=== PATIENT | female | born 1990 | race Caucasian/White ===

== ENCOUNTER → 2018-08-06 | Outpatient (CLI) | payer BC ==
--- NOTE | 2018-08-06 15:43 | US ---
EXAMINATION TYPE: Ultrasound OB <= 14 week fetus DATE OF EXAM: 08/06/2013 COMPARISON: NONE CLINICAL HISTORY: 27-year-old female O76 Abnormality in heart rate and rhythm com. Abnormal or absent heart tones EXAM PERFORMED: Transabdominal (TA) FINDINGS: EXAM MEASUREMENTS: GESTATIONAL AGE / DATING Physician Established: Not yet established Dates by LMP: (12 weeks/3 days) EDC: 02/15/19 Dates by First Scan: No previous this is first scan Dates by Current Scan for: (11 weeks/1 days) EDC: 02/24/19 MATERNAL ANATOMY Uterus: 10.1 x 6.8 x 9.6cm Right Ovary: 2.3 x 2.0 x 1.9cm Left Ovary: 2.9 x 1.3 x 1.5cm Post CDS / Adnexa: appears wnl Presence of free fluid: no Presence of corpus luteal cyst: complex area right ovary = 1.7 x 1.2cm GESTATION / SURVEY CRL: 4.2cm (11 weeks/1 days) Yolk Sac (normal less than 6mm): 0.5cm Heart Rate: 155 bpm Rhythm: Normal IUP: Viable IUP Date of LMP: 05/11/18 Beta HcG (if available): not available [facility] notes: Single viable IUP 11wks/1day with CHANELLE of 02/24/19. Difficult to visualize right ov janice due to large amount of overlying bowel content, probable corpus luteum right ovary. IMPRESSION: 1. Single live intrauterine with estimated gestational age of 12 weeks 3 days by LMP. Curre nt ultrasound biometry is smaller by 1 week and 2 days (with a measured GA of 11 weeks 1 day by crown -rump length). Short interval follow-up can be considered. 2. Complete survey recommended at 18-20 weeks.
== END | disposition home or self-care (01) ==
LOC: RADUSWWP 14:44
PROVIDERS: ATTEND Obstetrics & Gynecology
DX: O76 Abnormality in fetal heart rate and rhythm complicating labor and delivery (principal); Z3A.12 12 weeks gestation of pregnancy
CPT/HCPCS: 76801

== ENCOUNTER 2018-12-30 21:05 | Outpatient (CLI) | payer BC ==
[2018-12-30 22:40] VITALS: BP 135/85; PULSE 100; RESP 16; TEMP 98.4
--- NOTE | 2019-01-24 11:39 | P.MSEPDOC ---
Presenting Problems - Arrival Data Date of Arrival on Unit: 12/30/18 Time of Arrival on Unit: 21:04 Mode of Transport: Wheelchair - Complaint OB-Reason for Admission/Chief Complaint: Rule Out PROM Medical History - Information : 1 Para: 0 Term: 0 : 0 Abortions: Spontaneous or Elective: 0 Number of Living Children: 0 - Gestational Age Gestational Age by CHANELLE (wks/days): 31 Weeks and 2 Days Review of Systems - Review of Systems Constitutional: No problems Breast: No problems ENT: No problems Cardiovascular: No problems Respiratory: No problems Gastrointestinal: Constipation, Diarrhea Genitourinary: No problems Musculoskeletal: No problems Neurological: No problems Skin: No problems Vital Signs - Temperature Temperature: 98.4 F Temperature Source: Oral - Pulse Right Pulse Oximetery Pulse Rate: 100 Pulse Assessment Method: Pulse Oximetry - Respirations Respiratory Rate: 16 Oxygen Delivery Method: Room Air O2 Sat by Pulse Oximetry: 98 - Blood Pressure Right Arm Supine Blood Pressure: 135/85 Blood Pressure Mean: 101 Blood Pressure Source: Automatic Cuff Medical Screen Scoring (Pre) - Cervical Exam Dilation: 0 cm = 0 Membranes: Intact - Uterine Contractions Frequency: > 5 minutes apart = 1 Duration: > 40 seconds = 2 - Maternal Vital Signs Maternal Temperature: N/A Maternal Blood Pressure: N/A Signs of Preeclampsia: N/A Maternal Respirations: N/A - Pain Assessment Pain Scale Used: Numeric (1 - 10) Pain Intensity: 0 Pain Behavior: None Exhibited - Maternal Trauma Maternal Trauma: N/A - Assessment Baseline FHR: 145 Heart Rate - NICHD Category: Category I (Normal) = 0 NST: Reactive - Total Score Total Score (Pre): 3 - Level of Risk Level of Risk: Low (0-5) Physician Notification (Pre) - Physician Notified Physician Notified Date: 12/30/18 Physician Notified Time: 22:00 Physician/Practitioner Notifed:: Dr Castillo Spoke With: Dr Castillo New Order Received: Yes - Notification Comment Comment: Amnisure negative, may discharge to home with FBP discharge instructions, keep next appointment with Dr Tapia Disposition - Disposition OB Disposition: Discharge to home Discharge Date: 12/30/18 Discharge Time: 22:30 I agree with the RN Medical Screening Exam: Yes Risk & Benefit of care provided described in d/c instruction: Yes Diagnosis: RELATED CONDITIONS, UNSPECIFIED, THIRD TRIMESTER
== END 2018-12-30 22:30 | disposition home or self-care (01) ==
LOC: FBPOP 21:05
PROVIDERS: ATTEND Obstetrics & Gynecology
DX: O26.93 Pregnancy related conditions, unspecified, third trimester (principal); Z3A.31 31 weeks gestation of pregnancy
CPT/HCPCS: 59025; 84112; 99213

== ENCOUNTER 2019-01-27 06:02 | Outpatient (CLI) | payer BC ==
[2019-01-27] MEDS ORDERED: LACTATED RINGERS 1,000 ML IV SCH ×2 (07:00)
[2019-01-27 07:04] VITALS: BP 136/89; PULSE 85; RESP 16; TEMP 97.2
--- NOTE | 2019-01-27 08:30 | US ---
EXAMINATION TYPE: US OB BPP wo non-stress DATE OF EXAM: 01/27/2019 COMPARISON: First trimester ultrasound August 06, 2018 CLINICAL HISTORY: decreased movement noted yesterday, but patient stated she felt movemen t this morning EXAM PERFORMED: Transabdominal (TA) BPP PARAMETERS: PRESENTATION: Vertex LIE: Longitudinal?? HEART RATE: 136 bpm RHYTHM: Normal LORE: 14.0 DIAPHRAGM IMAGED: yes BPP SCORIN. Breathin (1 episode of breathing of 30 second duration in 30 minutes of scanning time) 2. Movement: 2 (at least 3 discrete body movements in 30 minutes) 3. Tone: 2 (1 episode of active flexion/extension of limb) 4. LORE: 2 (LORE index > 5cm) TOTAL SCORE: 8 / 8 Biophysical profile scored normal during real-time scanning.
--- NOTE | 2019-01-27 08:45 | US ---
EXAMINATION TYPE: US OB >= 14 wk fetus DATE OF EXAM: 01/27/2019 COMPARISON: First trimester ultrasound August 06, 2018 CLINICAL HISTORY: LORE, EFW, decreased movement yesterdayper patient; TECHNIQUE: Transabdominal (TA) GESTATIONAL AGE / DATING Physician Established: (35 weeks/2 days) EDC: 03/01/2019 Dates by First Scan: (36 weeks/0 days) EDC: 02/24/2019 Dates by Current Scan: (35 weeks/2 days) EDC: 03/01/2019 Beta HCG (if available): NA SURVEY IUP: Single PLACENTA: Anterior PREVIA: No Previa LORE: 16.4 cm Normal CERVICAL LENGTH (transabdominal: norm > 3.0cm): 4.6 cm BIOMETRY PRESENTATION: Vertex LIE: Longitudinal BPD: 9.2 cm 37 weeks / 3 days HC: 31.8 cm 35 weeks / 6 days AC: 29.0 cm 33 weeks / 0 days FL: 6.8 cm 35 weeks / 0 days ESTIMATED WEIGHT IN GRAMS: 2399.0 grams ESTIMATED WEIGHT IN LBS/OZ: 5 lbs. 5 oz. WEIGHT PERCENTAGE BASED ON ESTABLISHED DATES: 22.2% HC/AC: 1.1 Normal FL/AC: 23.5 Normal HEART RATE: 158 bpm RHYTHM: Normal Tech findings reported at exam's end to Adelia Vital RN for this patient. JJ Single live intrauterine gestation is redemonstrated. Normal cephalad presentation to fetus is seen. No ultrasound evidence for placenta previa. Amniotic fluid index is calculated at upper limits of nor mal. biometry measurements are concordant felt within normal limits. IMPRESSION: As above, no ultrasound evidence for complication.
[2019-01-27 09:50] LABS: Basophils % (A) 0 %; Eosinophils # (A) 0.1 k/uL (0-0.7); Eosinophils % (A) 1 %; HCT 34.8 % (34.0-46.0); HGB 11.6 gm/dL (11.4-16.0); Lymphocytes # (A) 2.1 k/uL (1.0-4.8); Lymphocytes % (A) 21 %; MCH 30.7 pg (25.0-35.0); MCHC 33.4 g/dL (31.0-37.0); Mean Platelet Volume 10.8; Monocytes # (A) 0.6 k/uL (0-1.0); Monocytes % (A) 6 %; Neutrophils # (A) 7.2 k/uL (1.3-7.7); Neutrophils % (A) 71 %; Platelet Count 182 k/uL (150-450); RBC 3.78 m/uL (3.80-5.40); RDW 13.4 % (11.5-15.5); WBC 10.2 k/uL (3.8-10.6)
[2019-01-27 10:24] LABS: ALT 30 U/L (9-52); AST 21 U/L (14-36); Blood Urea Nitrogen 7 mg/dL (7-17); LDH 400 U/L (313-618)
[2019-01-27 10:38] LABS: Appearance,Urine Clear (Clear); Bacteria,Urine Occasional /hpf; Bilirubin,Urine Negative (Negative); Blood,Urine Negative (Negative); Color,Urine Light Yellow; Glucose,Urine (UA) Negative (Negative); Ketones,Urine Negative (Negative); Leukocyte Esterase,Urine Trace (Negative); Nitrite,Urine Negative (Negative); PH, Urine 7.5 (5.0-8.0); Protein,Urine Negative (Negative); Specific Gravity,Urine 1.008 (1.001-1.035); Squamous Epithelial Cell,Urine 1 /hpf (0-4); Urobilinogen,Urine <2.0 mg/dL (<2.0); WBC,Urine 1 /hpf (0-5)
--- NOTE | 2019-01-27 10:48 | P.PN ---
Subjective Progress Note Date: 01/27/19 Principal diagnosis: IUP @ 35 2/7 weeks, decreased FM This is a 28 yo at 35 2/7 weeks that presents with c/o decreased FM. she initially has a non reactive NST, which was followed up with us evaluation. BPP 8/9 with nml LORE 15. FHTs are noted to be reassuring with moderate variability occasional self acceleration is noted. No contractions are noted on the monitor. Patient subsequently had some elevated blood pressures 140s/ 90s. She has a history of migraines and now states she has a headache. Blood pressures have improved over monitoring 130s over 70s, preeclampsia labs were noted to be negative. Objective - Vital Signs Vital signs: Vital Signs Temp 97.2 F L 01/27/19 06:46 Pulse 85 01/27/19 06:46 Resp 16 01/27/19 06:46 BP 136/89 01/27/19 06:46 Pulse Ox 98 01/27/19 06:46 Intake & Output 01/26/19 01/27/19 01/27/19 18:59 06:59 18:59 Intake Total 1000 Balance 1000 Weight 76.657 kg Intake: Intake, IV Titration 1000 Amount Lactated Ringers 1,000 ml 1000 @ 4000 mls/hr IV .Q15M SAE Rx#:[id number] Other: # Voids 1 - Constitutional General appearance: Present: average body habitus, cooperative, no acute distress - Respiratory Respiratory: bilateral: CTA - Cardiovascular Rhythm: regular - Gastrointestinal Gastrointestinal Comment(s): Gravid and appropriate for gestational age. - Genitourinary Genitourinary Comment(s): cl/th/ posterior per RN - Psychiatric Psychiatric: Present: A&O x's 3, appropriate affect - Labs CBC & Chem 7: 01/27/19 07:00 01/27/19 10:03 Labs: Abnormal Lab Results - Last 24 Hours (Table) 01/27/19 01/27/19 Range/Units 07:00 10:18 RBC 3.78 L (3.80-5.40) m/uL Ur Leukocyte Esterase Trace H (Negative) Urine Bacteria Occasional H (None) /hpf Assessment and Plan (1) 35 weeks gestation of Current Visit: Yes Status: Acute Code(s): Z3A.35 - 35 WEEKS GESTATION OF SNOMED Code(s): 35489930 (2) Decreased movement Current Visit: Yes Status: Acute Code(s): O36.8190 - DECREASED MOVEMENTS, UNSP TRIMESTER, UNSP SNOMED Code(s): 009897292 Plan: Given the extensive testing during her triage visit, including ultrasound evaluation of weight, amniotic fluid index, biophysical profile, preeclampsia labs given elevation of blood pressure during her triage stay all negative and reassuring. We will allow her to eat, and continue to monitor heart tones during her meal and send patient home with follow-up with Dr. Tapia.
--- NOTE | 2019-01-28 11:21 | P.MSEPDOC ---
Presenting Problems - Arrival Data Date of Arrival on Unit: 01/27/19 Time of Arrival on Unit: 06:02 Mode of Transport: Portable - Complaint OB-Reason for Admission/Chief Complaint: Decreased Movement Comment: no movement since 01/26 1600 Medical History - Information : 1 Para: 0 Term: 0 : 0 Abortions: Spontaneous or Elective: 0 Number of Living Children: 0 - Gestational Age Gestational Age by CHANELLE (wks/days): 35 Weeks and 2 Days Review of Systems - Review of Systems Constitutional: No problems Breast: No problems ENT: No problems Cardiovascular: No problems Respiratory: No problems Genitourinary: No problems Musculoskeletal: No problems Neurological: No problems Skin: No problems Comment: celiacs Vital Signs - Temperature Temperature: 97.2 F Temperature Source: Temporal Artery Scan - Pulse Right Pulse Rate: 85 Pulse Assessment Method: Pulse Oximetry - Respirations Respiratory Rate: 16 O2 Sat by Pulse Oximetry: 98 - Blood Pressure Right Arm Blood Pressure: 136/89 Blood Pressure Mean: 104 Blood Pressure Source: Automatic Cuff Medical Screen Scoring (Pre) - Cervical Exam Dilation: 0 cm = 0 Membranes: Intact - Uterine Contractions Frequency: N/A Duration: N/A Intensity: N/A - Maternal Vital Signs Maternal Temperature: N/A Maternal Blood Pressure: N/A Signs of Preeclampsia: N/A Maternal Respirations: N/A - Assessment Baseline FHR: 140 Heart Rate - NICHD Category: Category II (Indeterminate) = 3 NST: Non-reactive = 3 Position: N/A Station: N/A - Total Score Total Score (Pre): 6 - Level of Risk Level of Risk: Medium (6-9) Physician Notification (Pre) - Physician Notified Physician Notified Date: 01/27/19 Physician Notified Time: 06:46 Physician/Practitioner Notifed:: Dr Diaz New Order Received: Yes - Notification Comment Comment: reported on pts c/o, hx, fhts, no cntrx, SVE undetermined, no reports of movement. Orders to start IV, give 1L bolus, obtain u/s for EFW, LORE, BPP. Call Dr Diaz [facility] results Medical Screen Scoring (Post) - Cervical Exam Dilation: Exam Deferred Effacement: Exam Deferred - Uterine Contractions Frequency: > 5 minutes apart = 1 Duration: > 40 seconds = 2 - Assessment Heart Rate: 140 Heart Rate - NICHD Category: Category II (Indeterminate) = 3 - Total Score Total Score (Post): 6 - Post Treatment Level of Risk Post Treatment Level of Risk: Medium (6-9) Physician Notification (Post) - Physician Notified Physician Notified Date: 01/27/19 Physician Notified Time: 07:21 - Notification Comment Comment: Dr Diaz at bedside. call with BPP results Disposition - Disposition OB Disposition: Triage Discharge Date: 01/27/19 Discharge Time: 11:05 I agree with the RN Medical Screening Exam: Yes Risk & Benefit of care provided described in d/c instruction: Yes Diagnosis: DECREASED MOVEMENTS, THIRD TRIMESTER, FETUS 1
== END 2019-01-27 11:07 | disposition home or self-care (01) ==
LOC: FBPOP 06:02
PROVIDERS: ATTEND Obstetrics & Gynecology Obstetrics
DX: O36.8131 Decreased fetal movements, third trimester, fetus 1 (principal); Z3A.35 35 weeks gestation of pregnancy
CPT/HCPCS: 59025; 76805; 76819; 81001; 82565; 82570; 83615; 84156; 84450; 84460; 84520; 84550; 85025; 96360; 96361; 99215

== ENCOUNTER 2019-01-30 23:00 | Outpatient (CLI) | payer BC ==
[2019-01-30 23:38] VITALS: RESP 16; TEMP 97.2
[2019-01-30 23:51] LABS: Basophils % (A) 0 %; Eosinophils # (A) 0.2 k/uL (0-0.7); Eosinophils % (A) 2 %; HCT 34.2 % (34.0-46.0); HGB 11.4 gm/dL (11.4-16.0); Lymphocytes # (A) 2.6 k/uL (1.0-4.8); Lymphocytes % (A) 25 %; MCH 30.3 pg (25.0-35.0); MCHC 33.3 g/dL (31.0-37.0); MCV 91.2 fL (80.0-100.0); Mean Platelet Volume 9.8; Monocytes # (A) 0.5 k/uL (0-1.0); Monocytes % (A) 5 %; Neutrophils # (A) 6.9 k/uL (1.3-7.7); Neutrophils % (A) 66 %; Platelet Count 201 k/uL (150-450); RBC 3.75 m/uL (3.80-5.40); RDW 13.1 % (11.5-15.5); WBC 10.4 k/uL (3.8-10.6)
[2019-01-31 00:03] LABS: ALT 30 U/L (9-52); AST 21 U/L (14-36); Blood Urea Nitrogen 7 mg/dL (7-17); LDH 487 U/L (313-618); Uric Acid 5.7 mg/dL (3.7-7.4)
[2019-01-31 00:15] LABS: Appearance,Urine Cloudy (Clear); Bacteria,Urine Many /hpf; Bilirubin,Urine Negative (Negative); Blood,Urine Negative (Negative); Color,Urine Colorless; Glucose,Urine (UA) Negative (Negative); Ketones,Urine Negative (Negative); Leukocyte Esterase,Urine Moderate (Negative); Nitrite,Urine Negative (Negative); Protein,Urine Negative (Negative); RBC,Urine 1 /hpf (0-5); Specific Gravity,Urine 1.002 (1.001-1.035); Squamous Epithelial Cell,Urine 3 /hpf (0-4); Urobilinogen,Urine <2.0 mg/dL (<2.0); WBC,Urine 3 /hpf (0-5)
[2019-01-31 02:06] VITALS: PULSE 68
[2019-01-31 02:09] VITALS: BP 130/79
--- NOTE | 2019-02-28 11:34 | P.MSEPDOC ---
Presenting Problems - Arrival Data Date of Arrival on Unit: 01/30/19 Time of Arrival on Unit: 23:00 Mode of Transport: Wheelchair - Complaint OB-Reason for Admission/Chief Complaint: Headache, PIH Comment: BPs 150s/90s at home Medical History - Information : 1 Para: 0 Term: 0 : 0 Abortions: Spontaneous or Elective: 0 Number of Living Children: 0 - Gestational Age Gestational Age by CHANELLE (wks/days): 35 Weeks and 5 Days Vital Signs - Temperature Temperature: 97.2 F Temperature Source: Temporal Artery Scan - Pulse Right Pulse Rate: 68 Pulse Assessment Method: Pulse Oximetry - Respirations O2 Sat by Pulse Oximetry: 98 - Blood Pressure Right Arm Blood Pressure: 130/79 Blood Pressure Mean: 96 Blood Pressure Source: Automatic Cuff Medical Screen Scoring (Pre) - Cervical Exam Dilation: Exam Deferred Effacement: Exam Deferred - Uterine Contractions Frequency: N/A Duration: N/A Intensity: N/A - Maternal Vital Signs Maternal Temperature: N/A Maternal Blood Pressure: N/A Signs of Preeclampsia: Headache = 1, Nausea/Vomiting = 1 Maternal Respirations: N/A - Pain Assessment Pain Location and Character: Head Pain Scale Used: Numeric (1 - 10) Pain Intensity: 8 Pain Management Goal: 3 Pain Description: *Acute, Aching, Pressure, Sore Pain Radiation Location: 0 Pain Frequency: Intermittent Pain Duration: 10 Pain Duration Units: Days Pain Behavior: Vocalization Pain Aggravating Factors: None Pharmacological Interventions: PRN Medication Non-Pharmacological Interventions: Position/Reposition - Assessment Baseline FHR: 140 Heart Rate - NICHD Category: Category I (Normal) = 0 - Total Score Total Score (Pre): 2 - Level of Risk Level of Risk: Low (0-5) Physician Notification (Pre) - Physician Notified Physician Notified Date: 01/30/19 Physician Notified Time: 22:30 Physician/Practitioner Notifed:: Dr Diaz - Notification Comment Comment: per previous verbal orders, do PIH labs, keep on EFM, regular diet, serial BPs. call with results Medical Screen Scoring (Post) - Cervical Exam Dilation: Exam Deferred Effacement: Exam Deferred - Uterine Contractions Frequency: > or = 36 weeks =2 Duration: > 40 seconds = 2 Intensity: N/A - Maternal Vital Signs Maternal Temperature: N/A Maternal Blood Pressure: N/A Signs of Preeclampsia: Headache = 1, Nausea/Vomiting = 1 Maternal Respirations: N/A - Assessment Heart Rate: 135 Heart Rate - NICHD Category: Category I (Normal) = 0 NST: Reactive Position: N/A - Total Score Total Score (Post): 6 - Post Treatment Level of Risk Post Treatment Level of Risk: Medium (6-9) Physician Notification (Post) - Physician Notified Physician Notified Date: 01/31/19 Physician Notified Time: 00:46 Physician/Practitioner Notified:: Dr Diaz New Order Received: Yes - Notification Comment Comment: reported on lab results, fhts, cntrx pattern, vitals, pts s/sx. Orders to d/c home with instructions. keep scheduled appt in office saturday. return with any worsening or new sx Disposition - Disposition OB Disposition: Discharge to home Discharge Date: 01/31/19 Discharge Time: 01:10 I agree with the RN Medical Screening Exam: Yes Risk & Benefit of care provided described in d/c instruction: Yes Diagnosis: HEADACHE
== END 2019-01-31 01:15 | disposition home or self-care (01) ==
LOC: FBPOP 23:00
PROVIDERS: ATTEND Obstetrics & Gynecology Obstetrics
DX: O99.89 Other specified diseases and conditions complicating pregnancy, childbirth and the puerperium (principal); R51 Headache; Z3A.35 35 weeks gestation of pregnancy
CPT/HCPCS: 59025; 81001; 82565; 82570; 83615; 84156; 84450; 84460; 84520; 84550; 85025; 99215

== ENCOUNTER 2019-02-10 23:42 | Inpatient (IN) | payer BC ==
[2019-02-11] MEDS ORDERED: CARBOPROST TROMETHAMINE 250 MCG/ML 1 ML AMP IM PRN (00:10)
[2019-02-11] MEDS ORDERED: LIDOCAINE 0.5% (PF) 5 MG/ML (50 ML SDV) SQ PRN (00:10)
[2019-02-11] MEDS ORDERED: OXYTOCIN 10 UNIT/ML 1 ML VIAL IM PRN (00:10)
[2019-02-11] MEDS ORDERED: METHYLERGONOVINE 0.2 MG/ML 1 ML AMP IM PRN (00:10)
[2019-02-11] MEDS ORDERED: TERBUTALINE 1 MG/ML VIAL SQ PRN (00:10)
[2019-02-11 00:35] LABS: Basophils % (A) 0 %; Eosinophils # (A) 0.1 k/uL (0-0.7); Eosinophils % (A) 1 %; HCT 36.8 % (34.0-46.0); Lymphocytes # (A) 2.4 k/uL (1.0-4.8); Lymphocytes % (A) 16 %; MCH 29.9 pg (25.0-35.0); MCHC 32.7 g/dL (31.0-37.0); MCV 91.5 fL (80.0-100.0); Mean Platelet Volume 10.1; Monocytes # (A) 0.6 k/uL (0-1.0); Monocytes % (A) 4 %; Neutrophils # (A) 12.1 k/uL (1.3-7.7); Neutrophils % (A) 79 %; Platelet Count 219 k/uL (150-450); RBC 4.02 m/uL (3.80-5.40); RDW 13.5 % (11.5-15.5); WBC 15.4 k/uL (3.8-10.6)
[2019-02-11] MEDS: LACTATED RINGERS 1,000 ML IV SCH (00:51)
--- NOTE | 2019-02-11 01:09 | P.HPOB ---
History of Present Illness H&P Date: 02/11/19 Chief Complaint: Strong regular uterine contractions This is a 28-year-old white female 1 para 0 EDC 03/01/2019 at 37-3/7 weeks' gestation. Patient presented to the hospital with strong regular uterine contractions. She was noted to have advanced cervical dilatation, 8 cm in triage. She was rapidly admitted. She denied fluid leakage or vaginal bleeding. Fetus is been active throughout the . Past medical history is significant for multiple medical food and seasonal ALLERGIES. Patient has a history of neurocardiogenic syncope. History of celiac disease with reactive hypoglycemia. History of anemia. Patient also has a history of anxiety and migraine headaches. Past surgical history lymph node removal, colonoscopy, benign cyst removed. Current medications vitamins daily, Tums as needed. ALLERGIES include penicillin, pertussis vaccine, azithromycin, ciprofloxacin, sulfa medications, Prometrium, CT iodine contrast, Magnevist, gluten, week, bright, barley, oats, dairy, bee stings. Social history patient is , she has never been a smoker, she denies alcohol or drug use. Obstetric history is significant for blood type O positive, rubella status immune. VDRL testing, urine culture, hepatitis B surface antigen, HIV testing, rupee strep cultures, gonorrhea and chlamydia cultures all negative. One-hour Glucola 78. On exam patient is 5 foot 7 inches, approximately 150 pounds, initial blood pressure elevated while actively reg, 173/95. The general physical exam is within normal limits. Cervix on admission was 8 cm dilated, 100% effaced vertex presentation, intact membranes, -1 station. heart tones consistent with reactive NST. Impression: 37-3/7 weeks intrauterine , active labor. Multiple medical issues including anxiety, multiple ALLERGIES as noted. Otherwise all signs reassuring. Plan: Close maternal and surveillance. Analgesic options offered and declined. Anticipate normal spontaneous vaginal delivery. Review of Systems Constitutional: Reports as per HPI Past Medical History Additional Past Medical History / Comment(s): Anxiety, multiple medical ALLERGIES, history of neurocardiogenic syncope, history of celiac disease. History of Any Multi-Drug Resistant Organisms: None Reported Additional Past Surgical History / Comment(s): Benign cyst removal, lymph node removal, colonoscopy. Past Psychological History: Anxiety Smoking Status: Never smoker Medications and Allergies Home Medications Medication Instructions Recorded Confirmed Type Pnv,Calcium 72/Iron/Folic Acid 1 each PO TID 12/30/18 01/30/19 History [ Plus Tablet] Allergies Allergy/AdvReac Type Severity Reaction Status Date / Time azithromycin [From Zithromax] Allergy Rash/Hives Verified 02/11/19 00:09 barley Allergy Anaphylaxis Verified 02/11/19 00:09 ciprofloxacin [From Cipro] Allergy Rash/Hives Verified 02/11/19 00:09 gadopentetic acid Allergy Dyspnea Verified 02/11/19 00:09 [From Magnevist] gluten Allergy Anaphylaxis Verified 02/11/19 00:09 Iodine and Iodide Containing Allergy Chest Pain Verified 02/11/19 00:09 Produc Milk Containing Products Allergy Diarrhea Verified 02/11/19 00:09 [Dairy] oats Allergy Anaphylaxis Verified 02/11/19 00:09 Penicillins Allergy Anaphylaxis Verified 02/11/19 00:09 Pertussis Vaccines Allergy Anaphylaxis Verified 02/11/19 00:09 progesterone Allergy Hallucinati Verified 02/11/19 00:09 [From Prometrium] ons Sulfa (Sulfonamide Allergy Anaphylaxis Verified 02/11/19 00:09 Antibiotics) wheat Allergy Anaphylaxis Verified 02/11/19 00:09 Exam Intake and Output 02/10/19 02/10/19 02/11/19 14:59 22:59 06:59 Other: Weight 82.1 kg See dictation under HPI please Results Result Diagrams: 02/11/19 00:09 Abnormal Lab Results - Last 24 Hours (Table) 02/11/19 Range/Units 00:09 WBC 15.4 H (3.8-10.6) k/uL Neutrophils # 12.1 H (1.3-7.7) k/uL Assessment and Plan Assessment: 37-3/7 weeks intrauterine , active labor, currently all signs reassuring. Plan: Close maternal and surveillance. Anticipate normal spontaneous vaginal delivery. Time with Patient: Less than 30
--- NOTE | 2019-02-11 01:19 | P.PROBDLV ---
Vaginal Delivery Note - . Vaginal Delivery Note: This is a 28-year-old white female 1 para 0 EDC 03/01/2019 at 37-3/7 weeks' gestation. Patient presented with active labor, strong regular contractions, with advanced cervical dilatation. Please see dictated history and physical for details. On admission patient was noted to be 8 cm dilated. Upon my arriving to the hospital she was completely dilated, +1 station, vertex presentation. Artificial amniorrhexis revealed meconium-stained fluid. Patient was coached on delivery maneuvers. The perineal body was prepped and draped in usual sterile fashion. heart tones were noted to decrease in the second stage of labor, but good maternal expulsive efforts were noted. The 's head delivered occiput anterior and restituted accordingly. There were multiple loops of cord noted around the neck, too numerous to count. The umbilical cord was doubly clamped with hemostats and cut with a scissor. Upon unentangling the cord it was noted to be at least 5-6 times around the neck 360, with a twisted-type morphology, likely consistent with true knot or cord torsion. This was untangled swiftly as the infant was being bulb suctioned on the bed. Official time of delivery of a liveborn female is 0031 hours. She is handed to waiting nurses for evaluation where scores of 58 and 9 at one and 5 and 10 minutes respectively are given. Cord blood is sent to the lab for O- status. The placenta delivers spontaneously, it is inspected and noted to be meconium-stained but intact with trivascular cord at 0035 hours. This time the perineal body is redraped. Inspection of the cervix, vagina, perineum and perirectal as well as periurethral areas reveals a second degree laceration. This was injected with 1% lidocaine and repaired in the usual fashion using 3-0 Vicryl suture. All sponge needle and instrument counts are correct at the end of the procedure. Total estimated blood loss 250 mL's. Infant weighs 5 lbs. 6 oz. or 2450 g. The family is allowed to begin the bonding experience in the LDR.
[2019-02-11] MEDS ORDERED: ACETAMINOPHEN TAB 325 MG TAB PO PRN (01:21)
[2019-02-11] MEDS ORDERED: BENZOCAINE/MENTHOL SPRAY 1 GM/SPRAY AEROSOL TOPICAL PRN (01:21)
[2019-02-11] MEDS ORDERED: HYDROCORTISONE 2.5% RECTAL CREAM 30 GM TUBE RECTAL PRN (01:21)
[2019-02-11] MEDS ORDERED: ZOLPIDEM 5 MG TAB PO PRN (01:21)
[2019-02-11] MEDS ORDERED: LANOLIN CREAM 5 GM TUBE TOPICAL PRN (01:21)
[2019-02-11] MEDS ORDERED: SIMETHICONE 80 MG CHEWABLE PO PRN (01:21)
[2019-02-11] MEDS ORDERED: diphenhydrAMINE 50 MG/ML 1 ML VIAL IVP PRN ×2 (01:21)
[2019-02-11] MEDS ORDERED: diphenhydrAMINE 50 MG CAP PO PRN (01:21)
[2019-02-11] MEDS ORDERED: WITCH HAZEL 1 EACH MED..PAD TOPICAL PRN (01:21)
[2019-02-11] MEDS ORDERED: diphenhydrAMINE 25 MG CAP PO PRN (01:21)
[2019-02-11] MEDS ORDERED: OXYTOCIN 20 UNITS/1000 ML NS 1,000 ML IV SCH (01:30)
[2019-02-11 02:05] VITALS: BMI 28.3
[2019-02-11] MEDS: IBUPROFEN 600 MG TAB PO PRN ×4 (02:21→22:15)
[2019-02-11] MEDS: SENNOSIDES-DOCUSATE SODIUM 1 EACH TAB PO SCH ×2 (08:00→22:15)
[2019-02-12] MEDS: LACTATED RINGERS 1,000 ML IV SCH (01:53)
[2019-02-12 07:41] LABS: Basophils % (A) 0 %; Eosinophils # (A) 0.2 k/uL (0-0.7); Eosinophils % (A) 1 %; HCT 36.4 % (34.0-46.0); HGB 11.6 gm/dL (11.4-16.0); Lymphocytes # (A) 3.2 k/uL (1.0-4.8); Lymphocytes % (A) 17 %; MCH 29.4 pg (25.0-35.0); MCHC 31.8 g/dL (31.0-37.0); MCV 92.3 fL (80.0-100.0); Mean Platelet Volume 10.3; Monocytes # (A) 0.9 k/uL (0-1.0); Monocytes % (A) 5 %; Neutrophils # (A) 14.1 k/uL (1.3-7.7); Neutrophils % (A) 77 %; Platelet Count 189 k/uL (150-450); RBC 3.94 m/uL (3.80-5.40); RDW 13.7 % (11.5-15.5); WBC 18.4 k/uL (3.8-10.6)
--- NOTE | 2019-02-12 07:47 | P.DS ---
Providers Date of admission: 02/10/19 23:59 Expected date of discharge: 02/12/19 Attending physician: Rebecca Tapia Primary care physician: Stated None Hospital Course: This is a 28-year-old female 1 para 0 EDC 03/11/2019 at 37-3/7 weeks' gestation. Patient presented in active spontaneous labor. Blood type is O+, rubella status immune, group B strep cultures negative. Please see dictated history and physical for details. On admission blood pressure was elevated, 173/95. Patient was noted to be very uncomfortable in active labor. Patient went on to deliver a liveborn female with scores of 58 and 9 at one and 5 and 10 minutes respectively. There were category 2 heart tones noted in the second stage of labor. weighed 5 lbs. 6 oz. or 2450 g. She had a nuchal cord of at least 5-6, with portion of the cord noted as well. Estimated blood loss 250 mL's. Second-degree perineal laceration easily repaired. Please see dictated delivery note for details. This morning the patient is doing well. She is voiding, ambulating and passing flatus without difficulty. Vital signs are stable and she is afebrile. Blood pressure has settled down into the 140s over 70s range. Pulse is in the 80s. Patient denies headache, visual changes or right upper quadrant pain. She is tired, but otherwise has no complaints. Lochia rubra is moderate. Pain is well-controlled. Patient is being discharged home today in good condition. She will follow-up with me in the office in 6 weeks. I have reminded her no intercourse, tampons or douching. She will use [id number] Motrin, 200 mg pills, 3 every 6 h ours as needed. I've asked her to call me with any fevers shakes or chills, foul smelling or copious lochia, with the passage of any large blood clots, with any headache visual changes or right upper quadrant pain, or with any pain not alleviated by [id number]-yhe-[id number] analgesia. I've asked her to call me indeed with any problems difficulties or concerns. Patient Condition at Discharge: Good Plan - Discharge Summary Discharge Rx Participant: No New Discharge Prescriptions: No Action Pnv,Calcium 72/Iron/Folic Acid [ Plus Tablet] 1 each PO TID Discharge Medication List Pnv,Calcium 72/Iron/Folic Acid [ Plus Tablet] 1 each PO TID 12/30/18 [History] Follow up Appointment(s)/Referral(s): Rebecca Tapia MD [STAFF PHYSICIAN] - 6 Weeks Discharge Disposition: HOME SELF-CARE
[2019-02-12] MEDS: SENNOSIDES-DOCUSATE SODIUM 1 EACH TAB PO SCH (08:42)
[2019-02-12] MEDS: IBUPROFEN 600 MG TAB PO PRN ×2 (08:51→14:31)
[2019-02-12 17:54] VITALS: BP 135/86; PULSE 85; RESP 18; TEMP 98.3
== END 2019-02-12 17:56 | disposition home or self-care (01) | DRG 807 ==
LOC: FBPOP 23:42 → 4FBP 23:59
PROVIDERS: ADMIT Obstetrics & Gynecology; ATTEND Obstetrics & Gynecology
PROC: 10E0XZZ Delivery of Products of Conception, External Approach (ICD-10-PCS; principal; 2019-02-11)
PROC: 0KQM0ZZ Repair Perineum Muscle, Open Approach (ICD-10-PCS; 2019-02-11)
DX: O77.0 Labor and delivery complicated by meconium in amniotic fluid (principal); Z37.0 Single live birth; O69.2XX0 Labor and delivery complicated by other cord entanglement, with compression, not applicable or unspecified; O70.1 Second degree perineal laceration during delivery; O99.344 Other mental disorders complicating childbirth; F41.9 Anxiety disorder, unspecified; O99.62 Diseases of the digestive system complicating childbirth; K90.0 Celiac disease; G43.909 Migraine, unspecified, not intractable, without status migrainosus; J30.2 Other seasonal allergic rhinitis; R03.0 Elevated blood-pressure reading, without diagnosis of hypertension; Z3A.37 37 weeks gestation of pregnancy; Z79.899 Other long term (current) drug therapy; Z88.1 Allergy status to other antibiotic agents; Z91.030 Bee allergy status; Z91.041 Radiographic dye allergy status; Z91.011 Allergy to milk products; Z88.0 Allergy status to penicillin; Z88.2 Allergy status to sulfonamides; Z88.7 Allergy status to serum and vaccine; Z88.8 Allergy status to other drugs, medicaments and biological substances; Z91.018 Allergy to other foods
CPT/HCPCS: 85025; 86850; 86900; 86901; 88307

== ENCOUNTER 2022-06-17 11:27 | Outpatient (CLI) | payer BC ==
--- NOTE | 2022-06-17 12:32 | US ---
EXAMINATION TYPE: US OB limited DATE OF EXAM: 06/17/2022 COMPARISON: NONE CLINICAL HISTORY: questionable ROM. Increased urination last night, questioning PROM, 35 weeks gestat ion EXAM PERFORMED: OBTA limited No growth performed on today?s study per ordering physician SURVEY LORE: 17.3 cm Normal Ultrasound evidence of premature rupture of membranes? No PRESENTATION: Vertex LIE: Longitudinal HEART RATE: 160 bpm RHYTHM: Normal IMPRESSION: Unremarkable single live intrauterine without ultrasound evidence of premature rupture of m embranes.
[2022-06-17 13:32] VITALS: BP 133/78; PULSE 86; RESP 18; TEMP 97
--- NOTE | 2022-07-19 16:26 | P.MSEPDOC ---
Presenting Problems - Arrival Data Date of Arrival on Unit: 06/17/22 Time of Arrival on Unit: 11:27 Mode of Transport: Ambulatory - Complaint OB-Reason for Admission/Chief Complaint: Decreased Movement, Vaginal Bleeding, Pain Comment: Pt presents to triage with c/o decreased movement since last night, scant amount of bright red bleeding on toilet paper when wiping this morning, back pain that pt is rating 2 out of 10, and pt thinks her water might have broke last night. Medical History - Information : 3 Para: 1 Term: 0 : 1 Abortions: Spontaneous or Elective: 1 Number of Living Children: 1 - Gestational Age Gestational Age by CHANELLE (wks/days): 35 Weeks and 0 Days Review of Systems - Review of Systems Constitutional: No problems Breast: No problems ENT: No problems Cardiovascular: No problems Respiratory: No problems Gastrointestinal: No problems Genitourinary: No problems Musculoskeletal: No problems Neurological: No problems Skin: No problems Vital Signs - Temperature Temperature: 97.0 F Temperature Source: Temporal Artery Scan - Pulse Pulse Oximetery Pulse Rate: 86 Pulse Assessment Method: Pulse Oximetry - Respirations Respiratory Rate: 18 Oxygen Delivery Method: Room Air O2 Sat by Pulse Oximetry: 97 - Blood Pressure Right Arm Blood Pressure: 133/78 Blood Pressure Mean: 96 Blood Pressure Source: Automatic Cuff Medical Screen Scoring - Cervical Exam Dilation (cm): 0 Effacement (%): 50 Station: -3 Membranes: Intact - Uterine Contractions Resting: Soft to palpation - Assessment - Baby A Baseline FHR: 140 Heart Rate - NICHD Category: Category I (Normal) NST: Reactive Physician Notification - Physician Notified Physician Notified Date: 06/17/22 Physician Notified Time: 11:54 Physician: Addie Diaz New Order Received: Yes - Notification Comment Comment: RN spoke with Dr. Diaz regarding triage pt c/o decreased movement since last night, scant amount of bright red bleeding on toilet paper when wiping this morning, back pain that pt is rating 2 out of 10, and pt thinks her water might have broke last night. Per Dr. Diaz, RN to check pt's cervix, recheck cervix in one hour and order an LORE on pt. At 1304, RN reported to Dr. Diaz that pt was fingertip/thick/high on both cervical exams and LORE is 17.[address] Diaz, RN to reassure pt on findings and educate pt on labor symptoms. Order received to discharge pt home. Maternal Triage Index - Maternal Triage Index Presenting for scheduled procedure w/no complaint: No - Stat/Priority 1 Stat Priority 1: No - Urgent/Priority 2 Urgent Priority 2: No - Prompt/Priority 3 Prompt Priority 3: No - Non-Urgent/Priority 4 Non-Urgent Priority 4: Yes Criteria Met for Priority 4: Pt presents to triage with c/o decreased movement since last night, scant amount of bright red bleeding on toilet paper when wiping this morning, back pain that pt is rating 2 out of 10, and pt thinks her water might have broke last night. Disposition - Disposition OB Disposition: Discharge to home, Written follow up instructions reviewed Discharge Date: 06/17/22 Discharge Time: 13:15 I agree with the RN Medical Screening Exam: Yes Case reviewed; plan agreed upon as documented in EMR&OBIX.: Yes Diagnosis: FALSE LABOR BEFORE 37 COMPLETED WEEKS OF GEST, THIRD TRI
== END 2022-06-17 13:15 | disposition home or self-care (01) ==
LOC: FBPOP 11:27
PROVIDERS: ATTEND Obstetrics & Gynecology Obstetrics
DX: O47.03 False labor before 37 completed weeks of gestation, third trimester (principal); Z3A.35 35 weeks gestation of pregnancy; Z88.0 Allergy status to penicillin; Z88.1 Allergy status to other antibiotic agents; Z91.018 Allergy to other foods; Z88.7 Allergy status to serum and vaccine; Z91.011 Allergy to milk products; Z91.041 Radiographic dye allergy status; Z88.2 Allergy status to sulfonamides; Z91.040 Latex allergy status
CPT/HCPCS: 59025; 76815; 99213

== ENCOUNTER → 2025-03-26 | Outpatient (CLI) | payer BC ==
--- NOTE | 2025-03-26 14:44 | MM ---
Reason for Exam: Additional evaluation requested from abnormal screening. Last screening mammogram was performed less than 1 month ago. Patient History: Menarche at age 15. First Full-Term at age 28. Patient has history of breast feeding. Patient used Hormonal Contraceptives for 10 years. Paternal aunt had breast cancer, age 30. Paternal grandmother had breast cancer at or over age 50. Last menstrual period: 03/25/2025 Prior Study Comparison: 10/10/2017 Bilateral MG 3D screening mammo w/cad, [facility]. 03/19/2025 Bilateral MG 3D screening mammo w/cad, [facility]. Tissue Density: Right: The breasts are heterogeneously dense, which may obscure small masses. Findings: Analyzed By CAD. Additional diagnostic images confirm a 7 mm round circumscribed mass in the right breast upper outer quadrant approximately 5 cm distance from nipple. Overall Assessment: Incomplete: need additional imaging evaluation, BI-RAD 0 Management: Diagnostic Breast Ultrasound of the right breast. Targeted ultrasound right breast.. Results were given to the patient verbally at the time of exam. Patient should continue monthly self-breast exams. A clinical breast exam by your physician is recommended on an annual basis. This exam should not preclude additional follow-up of suspicious palpable abnormalities. Note on Liza scores and lifetime risk: 1. A Liza score greater than 3% is considered moderate risk. If this is the case, consider specialist referral to assess eligibility for a risk reducing agent. 2. If overall lifetime risk for the development of breast cancer is 20% or higher, the patient may qualify for future screening with alternating mammogram and breast MRI. [facility], , 03/26/2025 2:40 PM. Electronically signed and approved by: Coleman Monzon M.D.
--- NOTE | 2025-03-26 15:02 | USB ---
Reason for Exam: Additional evaluation requested from abnormal screening. Patient History: Menarche at age 15. First Full-Term at age 28. Patient has history of breast feeding. Patient used Hormonal Contraceptives for 10 years. Paternal aunt had breast cancer, age 30. Paternal grandmother had breast cancer at or over age 50. Technique: Method: Targeted. Doppler: Color. Patient Position: Supine. Prior Study Comparison: 10/10/2017 Bilateral MG 3D screening mammo w/cad, [facility]. 03/19/2025 Bilateral MG 3D screening mammo w/cad, [facility]. Findings: The upper outer quadrant of the right breast, the axilla of the right breast and the retroareolar of the right breast were scanned. Targeted ultrasound. There is a 7 x 5 x 7 mm benign-appearing lymph node at 10:00 position 7 cm distance from nipple likely to be corresponding to the mammogram abnormality. Overall Assessment: Benign, BI-RAD 2 Management: Screening Mammogram of both breasts at age 40. A clinical breast exam by your physician is recommended on an annual basis and results should be correlated with mammographic findings. This exam should not preclude additional follow-up of suspicious palpable abnormalities. Results were given to the patient verbally at the time of exam. [facility], , 03/26/2025 2:59 PM. Electronically signed and approved by: Coleman Monzon M.D.
== END | disposition home or self-care (01) ==
LOC: RADMAMWWP 12:54
PROVIDERS: ATTEND Internal Medicine Medical Oncology
DX: R92.8 Other abnormal and inconclusive findings on diagnostic imaging of breast (principal); R92.331 Mammographic heterogeneous density, right breast; Z92.0 Personal history of contraception; Z80.3 Family history of malignant neoplasm of breast
CPT/HCPCS: 77061; 77065

== ENCOUNTER → 2025-04-23 | Day surgery (SDC) | payer BC ==
--- NOTE | 2025-04-29 10:55 | MM ---
Reason for Exam: Post Procedure Mammogram. Last screening mammogram was performed 1 month(s) ago. Patient History: Menarche at age 15. First Full-Term at age 28. Premenopausal. Patient has history of breast feeding. Patient used Hormonal Contraceptives for 10 years. Paternal aunt had breast cancer, age 30. Paternal grandmother had breast cancer at or over age 50. Last menstrual period: 03/25/2025 Prior Study Comparison: 10/10/2017 Bilateral MG 3D screening mammo w/cad, [facility]. 03/19/2025 Bilateral MG 3D screening mammo w/cad, [facility]. 03/26/2025 Right MG 3D diag mammo w/cad RT, [facility]. 03/26/2025 Right US breast limited RT, [facility]. Tissue Density: Right: The breasts are heterogeneously dense, which may obscure small masses. Pathology Description: Location: 10 o'clock. Marker Left Behind. Needle Type: Celero Cores: 3 Gauge: 12 The procedure of ultrasound guided core biopsy was explained to the patient. Benefits, alternatives, and risks were discussed. An informed consent was then obtained. The patient was placed in supine positioning for imaging and for the procedure. The overlying skin was prepped and draped in usual sterile fashion. Lidocaine buffered with bicarbonate was used as anesthetic into the skin and subcutaneous tissue up to area of concern in the right 10:00 breast. Under ultrasound guidance, a 12-gauge vacuum assisted biopsy gun device was used to obtain 3 core samples. Following this, a biopsy clip was left in lesion. The patient tolerated the procedure well without any immediate complication. The patient was kept in the radiology department for short stay after the procedure and then discharged home in stable condition. Postprocedure mammogram: The patient was transferred to mammography for physician ordered post procedure mammogram for clip placement verification. Post procedure mammogram demonstrates the clip in appropriate placement. Impression: Successful, uncomplicated ultrasound guided core biopsy of area of concern in the right 10:00 breast, full pathology results to follow. [facility], , 04/23/2025 12:07 PM. Pathology Results: Result: Benign. Pathology and radiology were reviewed. Findings are concordant. RIGHT BREAST, 10:00, ULTRASOUND GUIDED NEEDLE CORE BIOPSY: Benign lymph node. Overall Assessment: Benign Assessment: MG diagnostic mammo RT wo CAD - Right: Benign, BI-RAD 2. Management: Diagnostic Mammogram of the right breast in 6 months. Electronically signed and approved by: Abel Ibrahim M.D. Radiologis
== END ==
LOC: RADUSWWP 09:51
PROVIDERS: ATTEND Internal Medicine Medical Oncology
DX: R92.8 Other abnormal and inconclusive findings on diagnostic imaging of breast (principal); Z80.3 Family history of malignant neoplasm of breast
CPT/HCPCS: 88305; 77065; 19083; A4648